=== PATIENT | female | born 1935 ===

== ENCOUNTER → 2016-12-16 | Outpatient (REF) | LOC: ZLAB.WCH 10:59 | DX: Z01.89 Encounter for other specified special examinations (principal) ==

== ENCOUNTER → 2017-03-18 | Outpatient (REF) | LOC: ZLAB.WCH 17:58 | DX: Z01.89 Encounter for other specified special examinations (principal) ==

== ENCOUNTER → 2017-03-19 | Outpatient (REF) | LOC: ZLAB.WCH 18:01 | DX: Z01.89 Encounter for other specified special examinations (principal) ==

== ENCOUNTER → 2017-06-21 | Outpatient (REF) ==
[2017-06-21 19:23] LABS: THYROID STIMULATING HORMONE 0.342 uIU/mL (0.465-4.680)
== END ==
LOC: ZLAB.WCH 18:20
PROVIDERS: Nurse Practitioner Family
DX: Z01.89 Encounter for other specified special examinations (principal)

== ENCOUNTER → 2017-12-27 | Outpatient (REF) ==
[2017-12-27 17:19] LABS: THYROID STIMULATING HORMONE 4.36 uIU/mL (0.465-4.680)
== END ==
LOC: ZLAB.WCH 16:14
PROVIDERS: Nurse Practitioner Family
DX: Z01.89 Encounter for other specified special examinations (principal)

== ENCOUNTER → 2018-10-18 | Outpatient (REF) | LOC: ZLAB.WCH 16:06 | DX: Z01.89 Encounter for other specified special examinations (principal) ==